=== PATIENT | female | born 1975 | race Caucasian/White ===

== ENCOUNTER → 2017-06-27 | Outpatient (CLI) | payer OTHER ==
[~2017-06-27] MED LIST: ANTIVERT/2525 MG PO; ASPIR-LOW81 MG PO; ASPIRIN ADULT L81 M2 PO; B12,B-12,B 12500 MC1 PO; BACTRIM DS 8001 TA1 PO; CARVEDILOL6.25 MG PO; CELEXA10 MG PO; CLARITIN10 MG PO; COMBIVENT1 ARO IH; COREG3.125 MG PO; COREG6.25 MG PO; FLEXERIL5 MG PO; FLOMAX0.4 MG PO; LISINOPRIL10 M1 PO; LOMOTIL 0.025 M1 TA1 PO; MEDROL DOSEPAK4 MG PO; Motrin,Rufen800 MG PO; NAPROSYN500 MG PO; PERCOCET 325 MG1 TA2 PO; TRAMADOL HCL50 MG PO; TRAMADOL50 MG PO; ULTRAM PO; VICO10300 PO; VICODIN 5/500 505 MG PO; ZITHROMAX Z PA250 MG PO; ZITHROMAX250 MG PO; ZOFRAN ODT4 MG SL; Zofran4 MG PO
[2017-06-27 13:03] LABS: ALBUMIN 3.5 gm/dl (3.1-4.5); BUN 10 mg/dl (7-24); CARBON DIOXIDE 26 mmol/L (21-32); CHLORIDE 104 mmol/L (98-107); CHOLESTEROL 138 mg/dL (<200); EST GLOM FILT AFRICAN AMERICAN > 60 ml/min; GLUCOSE 121 mg/dL (65-99); POTASSIUM 3.7 mmol/L (3.5-5.1); SGOT/AST 5 IU/L (3-35); SGPT/ALT 17 U/L (12-78); SODIUM 138 mmol/L (136-145)
[2017-06-27 13:12] LABS: ALKALINE PHOSPHATASE 63 U/L (45-117); BILIRUBIN, TOTAL 0.4 mg/dl (0.2-1.0); CPK 33 U/L (26-192); HDL CHOLESTEROL 48 mg/dl (40-60); LDL CHOLESTEROL 62 mg/dL (9-159); TOTAL PROTEIN 6.9 gm/dL (6.4-8.2); TRIGLYCERIDES 140 mg/dl (<150); VLDL CHOLESTEROL 28 mg/dL (6-40)
[2017-06-27 13:14] LABS: HEMOGLOBIN A1c 5.9 % (4.8-5.6)
[2017-06-27 13:20] LABS: BASO % 0.8 % (0.0-1.0); EOS # 0.1 10*3/uL (0.0-0.4); EOS % 1.7 % (1.0-4.0); HEMATOCRIT 35.3 % (37.0-47.0); LYMPH # 1.3 10*3/uL (1.3-4.4); LYMPH % 24.9 % (27.0-41.0); MEAN CELL VOLUME 91.2 fl (81.0-99.0); MEAN PLATELET VOLUME 9.6 fl (9.6-12.3); MONO # 0.4 10*3/uL (0.1-1.0); MONO % 7.3 % (3.0-9.0); NEUT # 3.4 10*3/uL (2.3-7.9); NEUT % 65.1 % (47.0-73.0); PLATELET COUNT AUTOMATED 229 10*3/uL (130-400); RED BLOOD COUNT 3.87 10*6/uL (4.10-5.10); RED CELL DISTRI WIDTH 12.5 % (0-14.5); WHITE BLOOD COUNT 5.2 10*3/uL (4.8-10.8)
[2017-06-27 13:22] LABS: IRON 82 ug/dL (50-170); IRON SATURATION 20 %; T3 UPTAKE 27 % (31-39); UIBC 315 ug/dL (110-365)
[2017-06-27 13:23] LABS: IRF 8.6 % (2.4-13.3); RET-He 32.9 pg (32.1-37.9)
[2017-06-27 13:40] LABS: FERRITIN 47.2 ng/mL (10.0-291.0)
[2017-06-27 13:41] LABS: FOLIC ACID 14.84 ng/mL (>5.38)
== END | disposition home or self-care (01) ==
LOC: LAB 12:05
PROVIDERS: Family Medicine
DX: E78.5 Hyperlipidemia, unspecified (principal); R79.89 Other specified abnormal findings of blood chemistry; R53.83 Other fatigue

== ENCOUNTER 2017-08-01 13:29 | Inpatient (IN) | payer OTHER ==
[~2017-08-01] VITALS: Ht 162.5 cm; Wt 100.9 kg
[2017-08-01 13:35] VITALS: BP 148/80
[2017-08-01 14:01] LABS: BASO % 0.5 % (0.0-1.0); EOS # 0.1 10*3/uL (0.0-0.4); EOS % 1.4 % (1.0-4.0); HEMATOCRIT 37.8 % (37.0-47.0); HEMOGLOBIN 12.6 g/dl (12.0-16.0); LYMPH # 1.2 10*3/uL (1.3-4.4); LYMPH % 18.2 % (27.0-41.0); MEAN CELL VOLUME 90.9 fl (81.0-99.0); MEAN CORPUSCULAR HGB 30.3 pg (27.0-31.0); MEAN CORPUSCULAR HGB CONC 33.3 g/dl (33.0-37.0); MEAN PLATELET VOLUME 9.3 fl (9.6-12.3); MONO # 0.6 10*3/uL (0.1-1.0); MONO % 8.5 % (3.0-9.0); NEUT # 4.7 10*3/uL (2.3-7.9); NEUT % 71.1 % (47.0-73.0); PLATELET COUNT AUTOMATED 260 10*3/uL (130-400); RED BLOOD COUNT 4.16 10*6/uL (4.10-5.10); RED CELL DISTRI WIDTH 12.3 % (0-14.5); WHITE BLOOD COUNT 6.6 10*3/uL (4.8-10.8)
[2017-08-01 14:12] LABS: ACT PARTIAL THROMBO TIME 22.6 SECONDS (20.8-31.5)
[2017-08-01 14:17] LABS: ALBUMIN 3.8 gm/dl (3.1-4.5); ALKALINE PHOSPHATASE 82 U/L (45-117); BUN 15 mg/dl (7-24); CHLORIDE 105 mmol/L (98-107); CREATININE 0.87 mg/dL (0.55-1.02); MAGNESIUM 2.1 mg/dL (1.5-2.1); POTASSIUM 3.9 mmol/L (3.5-5.1); SGOT/AST 10 IU/L (3-35); SGPT/ALT 17 U/L (12-78); SODIUM 138 mmol/L (136-145); TOTAL PROTEIN 7.7 gm/dL (6.4-8.2)
[2017-08-01 14:18] LABS: LIPASE 674 U/L (73-393)
[2017-08-01 14:19] LABS: BETA-HCG, QUANT < 1.0 mIU/mL (1-3); TROPONIN I < 0.015 ng/ml (<0.045)
[2017-08-01 14:59] VITALS: BP 128/73
--- NOTE | 2017-08-01 15:18 | NUR ---
PATIENT IN ROOM AT THIS TIME IN NO DISTRESS.
[2017-08-01 16:42] VITALS: BP 113/68
[2017-08-01 17:00] VITALS: BP 134/74
--- NOTE | 2017-08-01 17:00 | NUR ---
A 41, admitted to , under the services of KERVIN Camp DO with a diagnosis of CHEST PAIN R/O MA. Chief complaint is CHEST PAIN. Patient arrived via bed from ER. Monitor applied. Initial assessment completed. Vital signs taken and recorded. KERVIN CAMP DO notified of admission to the unit. Orders received. See assessment for past medical history, medications and allergies. Patient and/or family oriented to unit. [facility] visitation policy reviewed. Clothing/patient valuable form completed. AMAYA PATE
--- NOTE | 2017-08-01 17:14 | NUR ---
PATIENT CONSULT CALLED TO DR. PENNY. THE WAS UPDATED ON THE PATIENTS CONDITION, TOLD ABOUT CARE SO FAR FROM [facility]. THE WAS ALSO UPDATED ON LABS FROM THE PATIENT. DR. PENNY REQUESTED THE REPORT FROM THE HOSPITAL THE PATIENT WAS AT IN FEBRUARY FOR CARDIAC STENT PLACEMENT, NO OTHER CONCERNS FROM THE
[2017-08-01 17:20] VITALS: BP 134/74
[2017-08-01] MEDS ORDERED: LASIX40 MG PO (17:23)
[2017-08-01] MEDS ORDERED: PLAVIX75 M1 PO (17:23)
[2017-08-01] MEDS ORDERED: IMDUR SA30 MG (17:24)
[2017-08-01] MEDS ORDERED: APRESOLINE10 MG PO (17:25)
[2017-08-01] MEDS ORDERED: TRAMADOL HCL50 MG PO (17:26)
[2017-08-01] MEDS ORDERED: LIPITOR10 MG PO (17:26)
[2017-08-01] MEDS ORDERED: VENTOLIN 02.5 MG/3 M INH (17:28)
[2017-08-01 20:00] VITALS: BP 118/60
[2017-08-02] VITALS: BP 145/79
--- NOTE | 2017-08-02 00:51 | NUR ---
24 HR chart check completed.
[2017-08-02 06:56] LABS: BASO % 0.5 % (0.0-1.0); EOS # 0.1 10*3/uL (0.0-0.4); EOS % 2.1 % (1.0-4.0); HEMATOCRIT 35.8 % (37.0-47.0); HEMOGLOBIN 11.8 g/dl (12.0-16.0); LYMPH # 1.4 10*3/uL (1.3-4.4); LYMPH % 23.8 % (27.0-41.0); MEAN CELL VOLUME 91.3 fl (81.0-99.0); MEAN CORPUSCULAR HGB 30.1 pg (27.0-31.0); MEAN PLATELET VOLUME 9.3 fl (9.6-12.3); MONO # 0.4 10*3/uL (0.1-1.0); MONO % 6.8 % (3.0-9.0); NEUT % 66.5 % (47.0-73.0); PLATELET COUNT AUTOMATED 224 10*3/uL (130-400); RED BLOOD COUNT 3.92 10*6/uL (4.10-5.10); RED CELL DISTRI WIDTH 12.2 % (0-14.5); WHITE BLOOD COUNT 6.1 10*3/uL (4.8-10.8)
[2017-08-02 07:15] LABS: BUN 14 mg/dl (7-24); CHLORIDE 106 mmol/L (98-107); CHOLESTEROL 138 mg/dL (<200); HDL CHOLESTEROL 43 mg/dl (40-60); LDL CHOLESTEROL 55 mg/dL (9-159); MAGNESIUM 2.2 mg/dL (1.5-2.1); PHOSPHOROUS 2.9 mg/dL (2.5-4.9); POTASSIUM 3.8 mmol/L (3.5-5.1); SODIUM 138 mmol/L (136-145); TRIGLYCERIDES 201 mg/dl (<150); VLDL CHOLESTEROL 40 mg/dL (6-40)
[2017-08-02 08:00] VITALS: BP 101/51
[2017-08-02 08:06] LABS: VITAMIN D, 25-HYDROXY 24.6 ng/mL (30-100)
--- NOTE | 2017-08-02 09:00 | NUR ---
Manager [employer] in to talk to patient. Patient states lives at home with family. There are few steps in the home. Physician: amarjit lilly [facility]acy: [facility] Home health services: none Patient's level of ADLs: INDEPENDENT Patient has working utilities: all working DME: none Follow-up physician's appointment after d/c: will be made by hospitalist nurse director upon discharge Does patient want to access PORTAL?: no Discharge plan discussed with patient, patient lives at home with family, is independent in adls and ambulation, works drives, denies any home needs. VISH CALLES
--- NOTE | 2017-08-02 09:44 | NUR ---
PATIENT RESTING WITH NO DISTRESS.
[2017-08-02 10:11] VITALS: BP 144/72
[2017-08-02 12:00] VITALS: BP 114/91
[2017-08-02] MEDS ORDERED: VITAMIN D31000 UNI1 PO (14:33)
[2017-08-02] MEDS ORDERED: VITAMIN B121000 MC1 PO (14:34)
--- NOTE | 2017-08-02 15:00 | NUR ---
SPOKE WITH DR. PENNY AND NOTIFIED HIM OF LABS. HE SAID PATIENT COULD FOLLOW UP WITH HIM AN OUTPATIENT AND HAVE STRESS TEST AN OUTPATIENT. DR. KAHN NOTIFIED.
[2017-08-02 16:00] VITALS: BP 114/68
--- NOTE | 2017-08-02 17:14 | NUR ---
HEP LOCK REMOVED FOR DISCHARGE. Discharge instructions reviewed with patient/family. Patient receptive and verbalizes understanding. Follow-up care arranged. Written instructions given to patient/family. SAL SINGLETARY
== END 2017-08-02 17:14 | disposition home or self-care (01) | DRG 313 ==
LOC: ED 13:29 → EDHOLD 14:32 → 5E 14:32
PROVIDERS: Emergency Medicine; Internal Medicine; ADMIT Internal Medicine
DX: R07.89 Other chest pain (principal); I25.2 Old myocardial infarction; I11.0 Hypertensive heart disease with heart failure; E87.2 Acidosis; I50.9 Heart failure, unspecified; I25.10 Atherosclerotic heart disease of native coronary artery without angina pectoris; D72.810 Lymphocytopenia; E78.00 Pure hypercholesterolemia, unspecified; J45.909 Unspecified asthma, uncomplicated; R73.9 Hyperglycemia, unspecified; D64.9 Anemia, unspecified; E53.8 Deficiency of other specified B group vitamins; E83.41 Hypermagnesemia; E78.5 Hyperlipidemia, unspecified; Z98.61 Coronary angioplasty status; Z88.0 Allergy status to penicillin; Z88.8 Allergy status to other drugs, medicaments and biological substances; Z79.899 Other long term (current) drug therapy; Z79.82 Long term (current) use of aspirin; Z98.51 Tubal ligation status; Z82.49 Family history of ischemic heart disease and other diseases of the circulatory system; Z83.3 Family history of diabetes mellitus; Z80.1 Family history of malignant neoplasm of trachea, bronchus and lung; Z84.89 Family history of other specified conditions

== ENCOUNTER → 2017-08-29 | Outpatient (CLI) | payer OTHER ==
[~2017-08-29] MED LIST changes: +APRESOLINE10 MG PO; +IMDUR SA30 MG; +LASIX40 MG PO; +LIPITOR10 MG PO; +PLAVIX75 M1 PO; +VENTOLIN 02.5 MG/3 M INH; +VITAMIN B121000 MC1 PO; +VITAMIN D31000 UNI1 PO
--- NOTE | ~2017-08-29 | ST ---
[place], [place] EXERCISE STRESS TEST REPORT NAME: MARY ARTHUR UNIT #: [id number] ROOM: DOCTOR: JARED PENNY MD BIRTHDATE: [birth year] DOS: 08/29/2017 CARDIOLITE STRESS TEST The patient walked on the Gustavo protocol about 5 minutes. Heart rate is 150, 85% of predicted heart rate. Baseline cardiogram. Sinus rhythm with exercise. No new EKG changes. No chest discomfort. Blood pressure and heart rate response was normal. FINAL IMPRESSION: No EKG changes with exercise. No chest pain with exercise. No dysrhythmia with exercise. Blood pressure and heart rate response was normal. Nuclear images will be reported separately. JARED PENNY MD CM:STRESS:EXERCISE STRESS TEST REPORT [id number] JARED PENNY MD
--- NOTE | 2017-08-29 08:00 | NUR ---
INFORMED CONSENT SIGNED FOR CARDIOLYTE STRESS TEST WITH DR. PENNY. RESTING EKG NSR, HR 70, BP 124/90. COMPLETED 5:05 OF A TWO MINUTE WARREN PROTOCOL STRESS TEST COMPLETING 1:05 STAGE III, 3.4MPH/14% GRADE. TEST TERMINATED D/T FATIGUE. PEAK HEART RATE OF 152 ACHIEVED WHICH IS 86% PREDICTED MAXIMUM AND A PEAK BP 190/80. PVC'S NOTED IN RECOVERY AND NON DIAGNOSTIC ST CHANGES. PT C/O SOB. HAS A FAIR EXERCISE TOLERANCE. LAST RECOVERY HR 80, BP 160/82. WAITING NUCLEAR SCANNING IN STABLE CONDITION.
== END | disposition home or self-care (01) ==
LOC: CARD 02:23
DX: I25.9 Chronic ischemic heart disease, unspecified (principal)

== ENCOUNTER 2018-03-07 12:34 | Emergency (ER) | payer OTHER ==
[~2018-03-07] VITALS: Ht 162.5 cm; Wt 103.0 kg
[2018-03-07 12:36] VITALS: BP 114/72
[2018-03-07] MEDS ORDERED: PROVENTIL HFA6.7 GM INH (12:44)
[2018-03-07] MEDS ORDERED: ATORVASTATIN CA10 M1 PO (12:44)
[2018-03-07] MEDS ORDERED: CARVEDILOL25 MG PO (12:44)
[2018-03-07] MEDS ORDERED: CLOPIDOGREL75 MG PO (12:44)
[2018-03-07] MEDS ORDERED: FUROSEMIDE40 MG PO (12:45)
[2018-03-07] MEDS ORDERED: BENZONATATE200 MG PO (12:45)
[2018-03-07 13:00] LABS: BASO # 0.1 10*3/uL (0.0-0.1); BASO % 0.8 % (0.0-1.0); EOS # 0.1 10*3/uL (0.0-0.4); EOS % 1.4 % (1.0-4.0); HEMATOCRIT 37.8 % (37.0-47.0); HEMOGLOBIN 12.9 g/dl (12.0-16.0); LYMPH # 1.1 10*3/uL (1.3-4.4); LYMPH % 15.8 % (27.0-41.0); MEAN CELL VOLUME 90.2 fl (81.0-99.0); MEAN CORPUSCULAR HGB 30.8 pg (27.0-31.0); MEAN CORPUSCULAR HGB CONC 34.1 g/dl (33.0-37.0); MEAN PLATELET VOLUME 9.2 fl (9.6-12.3); MONO # 0.4 10*3/uL (0.1-1.0); MONO % 5.8 % (3.0-9.0); NEUT # 5.5 10*3/uL (2.3-7.9); NEUT % 75.8 % (47.0-73.0); PLATELET COUNT AUTOMATED 285 10*3/uL (130-400); RED BLOOD COUNT 4.19 10*6/uL (4.10-5.10); RED CELL DISTRI WIDTH 12.8 % (0-14.5); WHITE BLOOD COUNT 7.2 10*3/uL (4.8-10.8)
[2018-03-07 13:09] LABS: ACT PARTIAL THROMBO TIME 19.9 SECONDS (20.8-31.5)
[2018-03-07 13:15] LABS: ALBUMIN 3.8 gm/dl (3.1-4.5); ALKALINE PHOSPHATASE 71 U/L (45-117); BUN 13 mg/dl (7-24); CHLORIDE 107 mmol/L (98-107); CREATININE 1.03 mg/dL (0.55-1.02); POTASSIUM 3.5 mmol/L (3.5-5.1); SGOT/AST 13 IU/L (3-35); SGPT/ALT 24 U/L (12-78); SODIUM 142 mmol/L (136-145); TOTAL PROTEIN 7.5 gm/dL (6.4-8.2)
== END 2018-03-07 14:30 | disposition home or self-care (01) ==
LOC: ED 12:34
PROVIDERS: Emergency Medicine
DX: J45.901 Unspecified asthma with (acute) exacerbation (principal); I25.10 Atherosclerotic heart disease of native coronary artery without angina pectoris; I11.0 Hypertensive heart disease with heart failure; I50.9 Heart failure, unspecified; E78.00 Pure hypercholesterolemia, unspecified; Z95.5 Presence of coronary angioplasty implant and graft; Z98.51 Tubal ligation status; Z79.899 Other long term (current) drug therapy; Z88.0 Allergy status to penicillin; Z79.82 Long term (current) use of aspirin

== ENCOUNTER → 2018-03-30 | Outpatient (CLI) | payer OTHER ==
[~2018-03-30] MED LIST changes: +ATORVASTATIN CA10 M1 PO; +BENZONATATE200 MG PO; +CARVEDILOL25 MG PO; +CLOPIDOGREL75 MG PO; +FUROSEMIDE40 MG PO; +PROVENTIL HFA6.7 GM INH
== END | disposition home or self-care (01) ==
LOC: US 14:00
DX: I70.203 Unspecified atherosclerosis of native arteries of extremities, bilateral legs (principal); I10 Essential (primary) hypertension

== ENCOUNTER 2018-05-19 23:17 | Emergency (ER) | payer OTHER ==
[~2018-05-19] VITALS: Ht 162.5 cm; Wt 106.6 kg
[2018-05-19 23:44] VITALS: BP 162/92
[2018-05-19 23:49] LABS: BASO # 0.1 10*3/uL (0.0-0.1); BASO % 0.7 % (0.0-1.0); EOS # 0.1 10*3/uL (0.0-0.4); EOS % 0.7 % (1.0-4.0); HEMATOCRIT 44.5 % (37.0-47.0); HEMOGLOBIN 14.8 g/dl (12.0-16.0); LYMPH # 1.9 10*3/uL (1.3-4.4); LYMPH % 18.3 % (27.0-41.0); MEAN CELL VOLUME 93.3 fl (81.0-99.0); MEAN CORPUSCULAR HGB CONC 33.3 g/dl (33.0-37.0); MEAN PLATELET VOLUME 9.4 fl (9.6-12.3); MONO # 0.6 10*3/uL (0.1-1.0); MONO % 5.6 % (3.0-9.0); NEUT # 7.9 10*3/uL (2.3-7.9); NEUT % 74.2 % (47.0-73.0); PLATELET COUNT AUTOMATED 269 10*3/uL (130-400); RED BLOOD COUNT 4.77 10*6/uL (4.10-5.10); RED CELL DISTRI WIDTH 12.9 % (0-14.5); WHITE BLOOD COUNT 10.6 10*3/uL (4.8-10.8)
[2018-05-19 23:59] LABS: ACT PARTIAL THROMBO TIME 21.6 SECONDS (20.8-31.5); INTERNATIONAL NORM RATIO 0.9 (2.0-3.5)
[2018-05-20 00:05] LABS: ALBUMIN 3.6 gm/dl (3.1-4.5); ALKALINE PHOSPHATASE 75 U/L (45-117); BUN 18 mg/dl (7-24); CHLORIDE 107 mmol/L (98-107); POTASSIUM 4.2 mmol/L (3.5-5.1); SGOT/AST 12 IU/L (3-35); SGPT/ALT 19 U/L (12-78); SODIUM 140 mmol/L (136-145); TOTAL PROTEIN 7.3 gm/dL (6.4-8.2)
[2018-05-20 00:11] LABS: TROPONIN I 0.196 ng/ml (<0.045)
[2018-06-06] MEDS ORDERED: ZESTRIL5 MG PO (15:35)
[2018-06-06] MEDS ORDERED: ISOSORBIDE30 MG PO (15:35)
[2018-06-06] MEDS ORDERED: APRESOLINE10 MG PO (15:36)
[2018-06-06] MEDS ORDERED: Lopressor25 MG PO (15:36)
[2018-06-06] MEDS ORDERED: ARNUITY ELLIP100 MCG INH (15:37)
[2018-06-08] MEDS ORDERED: IMDUR SA60 M1 PO (10:04)
[2018-06-08] MEDS ORDERED: B12100 MC1 PO (10:04)
== END 2018-05-20 02:52 | disposition short-term general hospital (02) ==
LOC: ED 23:17
PROVIDERS: Student in an Organized Health Care Education/Training Program
DX: I21.4 Non-ST elevation (NSTEMI) myocardial infarction (principal); J45.909 Unspecified asthma, uncomplicated; I25.10 Atherosclerotic heart disease of native coronary artery without angina pectoris; I11.0 Hypertensive heart disease with heart failure; I50.9 Heart failure, unspecified; E78.00 Pure hypercholesterolemia, unspecified; Z88.0 Allergy status to penicillin; Z79.899 Other long term (current) drug therapy

== ENCOUNTER 2020-02-03 10:31 | Observation (INO) | payer OTHER ==
[~2020-02-03] VITALS: Ht 160 cm; Wt 97.6 kg
[2020-02-03] VITALS (8 sets, daily range): BP systolic 154–174; BP diastolic 78–90
[~2020-02-03 10:31] MED LIST changes: +ARNUITY ELLIP100 MCG INH; +B12100 MC1 PO; +COZAAR50 M1 PO; +IMDUR SA60 M1 PO; +ISOSORBIDE30 MG PO; +Lopressor25 MG PO; +NORVASC2.5 MG PO; +PROZAC20 MG PO; +SINGULAIR10 M1 PO; +VERAPAMIL HCL40 MG PO; +VISTARIL25 MG PO; +VITAMIN C500 M8 PO; +VITAMIN E400 UNI3 PO; +ZESTRIL5 MG PO
[2020-02-03 10:56] LABS: BASO % 0.6 % (0.0-1.0); EOS # 0.1 10*3/uL (0.0-0.4); EOS % 1.4 % (1.0-4.0); HEMATOCRIT 39.8 % (37.0-47.0); HEMOGLOBIN 13.1 g/dl (12.0-16.0); LYMPH # 1.3 10*3/uL (1.3-4.4); LYMPH % 24.4 % (27.0-41.0); MEAN CELL VOLUME 93.2 fl (81.0-99.0); MEAN CORPUSCULAR HGB 30.7 pg (27.0-31.0); MEAN CORPUSCULAR HGB CONC 32.9 g/dl (33.0-37.0); MEAN PLATELET VOLUME 8.9 fl (9.6-12.3); MONO # 0.5 10*3/uL (0.1-1.0); MONO % 9.6 % (3.0-9.0); NEUT # 3.3 10*3/uL (2.3-7.9); NEUT % 63.8 % (47.0-73.0); PLATELET COUNT AUTOMATED 223 10*3/uL (130-400); RED BLOOD COUNT 4.27 10*6/uL (4.10-5.10); RED CELL DISTRI WIDTH 12.7 % (0-14.5); WHITE BLOOD COUNT 5.1 10*3/uL (4.8-10.8)
[2020-02-03 11:07] LABS: ACT PARTIAL THROMBO TIME 27.6 SECONDS (20.0-32.1); INTERNATIONAL NORM RATIO 0.9 (2.0-3.5)
[2020-02-03 11:12] LABS: ALBUMIN 3.5 gm/dl (3.1-4.5); ALKALINE PHOSPHATASE 75 U/L (45-117); BUN 13 mg/dl (7-24); CHLORIDE 107 mmol/L (98-107); CREATININE 0.77 mg/dL (0.55-1.02); POTASSIUM 4.2 mmol/L (3.5-5.1); SGOT/AST 13 IU/L (3-35); SGPT/ALT 22 U/L (12-78); SODIUM 139 mmol/L (136-145); TOTAL PROTEIN 7.3 gm/dL (6.4-8.2)
[2020-02-03 11:28] LABS: TROPONIN I < 0.015 ng/ml (<0.045)
[2020-02-03] MEDS ORDERED: ROPINIROLE HY0.25 MG PO (14:26)
[2020-02-03] MEDS ORDERED: IMDUR SA60 M1 PO (14:28)
[2020-02-03] MEDS ORDERED: NITROSTAT0.4 MG SL (14:28)
[2020-02-03] MEDS ORDERED: DIOVAN80 M1 PO (14:29)
[2020-02-04] VITALS: BP 135/68; BP 153/89
[2020-02-04 06:11] LABS: BASO % 0.3 % (0.0-1.0); EOS # 0.1 10*3/uL (0.0-0.4); EOS % 0.7 % (1.0-4.0); HEMOGLOBIN 13.3 g/dl (12.0-16.0); LYMPH # 1.6 10*3/uL (1.3-4.4); LYMPH % 17.8 % (27.0-41.0); MEAN CELL VOLUME 91.3 fl (81.0-99.0); MEAN CORPUSCULAR HGB 30.4 pg (27.0-31.0); MEAN CORPUSCULAR HGB CONC 33.3 g/dl (33.0-37.0); MEAN PLATELET VOLUME 8.8 fl (9.6-12.3); MONO # 0.7 10*3/uL (0.1-1.0); MONO % 8.1 % (3.0-9.0); NEUT # 6.7 10*3/uL (2.3-7.9); NEUT % 72.8 % (47.0-73.0); PLATELET COUNT AUTOMATED 233 10*3/uL (130-400); RED BLOOD COUNT 4.38 10*6/uL (4.10-5.10); RED CELL DISTRI WIDTH 12.4 % (0-14.5); WHITE BLOOD COUNT 9.2 10*3/uL (4.8-10.8)
[2020-02-04 06:24] LABS: ALBUMIN 3.2 gm/dl (3.1-4.5); BUN 10 mg/dl (7-24); CHLORIDE 105 mmol/L (98-107); CHOLESTEROL 162 mg/dL (<200); CREATININE 0.64 mg/dL (0.55-1.02); POTASSIUM 4.3 mmol/L (3.5-5.1); SGOT/AST 6 IU/L (3-35); SGPT/ALT 19 U/L (12-78); SODIUM 136 mmol/L (136-145); TOTAL PROTEIN 7.1 gm/dL (6.4-8.2); TRIGLYCERIDES 181 mg/dl (<150); VLDL CHOLESTEROL 36 mg/dL (6-40)
[2020-02-04 06:31] LABS: ALKALINE PHOSPHATASE 68 U/L (45-117); FREE T4 1.07 ng/dl (0.76-1.46); HDL CHOLESTEROL 41 mg/dl (40-60); LDL CHOLESTEROL 85 mg/dL (9-159)
[2020-02-04 07:37] LABS: VITAMIN D, 25-HYDROXY 28.1 ng/mL (30-100)
[2020-02-04 08:00] VITALS: BP 118/76
[2020-02-04 12:00] VITALS: BP 130/76
== END 2020-02-04 14:30 | disposition home or self-care (01) ==
LOC: ED 10:31 → EDHOLD 12:03 → 4E 12:03
PROVIDERS: Emergency Medicine; Registered Nurse; ADMIT Internal Medicine
DX: R07.89 Other chest pain (principal); I25.10 Atherosclerotic heart disease of native coronary artery without angina pectoris; I10 Essential (primary) hypertension; E78.00 Pure hypercholesterolemia, unspecified; J45.909 Unspecified asthma, uncomplicated; E53.8 Deficiency of other specified B group vitamins; E55.9 Vitamin D deficiency, unspecified; E66.9 Obesity, unspecified; R73.9 Hyperglycemia, unspecified

== ENCOUNTER 2020-02-15 13:45 | Emergency (ER) | payer OTHER ==
[~2020-02-15] VITALS: Ht 162.5 cm; Wt 74.8 kg
[~2020-02-15 13:45] MED LIST changes: +DIOVAN80 M1 PO; +NITROSTAT0.4 MG SL; +ROPINIROLE HY0.25 MG PO
[2020-02-15 14:25] LABS: BASO # 0.1 10*3/uL (0.0-0.1); BASO % 0.8 % (0.0-1.0); EOS # 0.1 10*3/uL (0.0-0.4); EOS % 0.8 % (1.0-4.0); HEMATOCRIT 37.3 % (37.0-47.0); HEMOGLOBIN 12.8 g/dl (12.0-16.0); LYMPH # 1.1 10*3/uL (1.3-4.4); LYMPH % 14.1 % (27.0-41.0); MEAN CELL VOLUME 90.1 fl (81.0-99.0); MEAN CORPUSCULAR HGB 30.9 pg (27.0-31.0); MEAN CORPUSCULAR HGB CONC 34.3 g/dl (33.0-37.0); MEAN PLATELET VOLUME 8.9 fl (9.6-12.3); MONO # 0.5 10*3/uL (0.1-1.0); MONO % 5.9 % (3.0-9.0); NEUT # 6.1 10*3/uL (2.3-7.9); PLATELET COUNT AUTOMATED 295 10*3/uL (130-400); RED BLOOD COUNT 4.14 10*6/uL (4.10-5.10); RED CELL DISTRI WIDTH 12.3 % (0-14.5); WHITE BLOOD COUNT 7.8 10*3/uL (4.8-10.8)
[2020-02-15 14:42] LABS: ALBUMIN 3.4 gm/dl (3.1-4.5); ALKALINE PHOSPHATASE 61 U/L (45-117); BUN 11 mg/dl (7-24); CHLORIDE 106 mmol/L (98-107); CREATININE 0.76 mg/dL (0.55-1.02); POTASSIUM 3.9 mmol/L (3.5-5.1); SGOT/AST 13 IU/L (3-35); SGPT/ALT 27 U/L (12-78); SODIUM 138 mmol/L (136-145); TROPONIN I < 0.015 ng/ml (<0.045)
[2020-02-15 15:24] VITALS: BP 100/51
== END 2020-02-15 15:31 | disposition home or self-care (01) ==
LOC: ED 13:45
PROVIDERS: Emergency Medicine
DX: R55 Syncope and collapse (principal); Z79.82 Long term (current) use of aspirin; Z88.0 Allergy status to penicillin; Z79.899 Other long term (current) drug therapy

== ENCOUNTER 2020-09-14 20:45 | Observation (INO) | payer OTHER ==
[~2020-09-14] VITALS: Ht 162.6 cm; Wt 107.2 kg
[2020-09-14 20:58] VITALS: BP 187/93
[2020-09-14 21:13] LABS: BASO % 0.7 % (0.0-1.0); EOS # 0.1 10*3/uL (0.0-0.4); EOS % 1.8 % (1.0-4.0); HEMATOCRIT 39.6 % (37.0-47.0); LYMPH # 1.5 10*3/uL (1.3-4.4); LYMPH % 27.5 % (27.0-41.0); MEAN CELL VOLUME 92.7 fl (81.0-99.0); MEAN CORPUSCULAR HGB 29.5 pg (27.0-31.0); MEAN CORPUSCULAR HGB CONC 31.8 g/dl (33.0-37.0); MEAN PLATELET VOLUME 9.2 fl (9.6-12.3); MONO # 0.5 10*3/uL (0.1-1.0); MONO % 9.1 % (3.0-9.0); NEUT # 3.3 10*3/uL (2.3-7.9); NEUT % 60.5 % (47.0-73.0); PLATELET COUNT AUTOMATED 252 10*3/uL (130-400); RED BLOOD COUNT 4.27 10*6/uL (4.10-5.10); RED CELL DISTRI WIDTH 12.6 % (0-14.5); WHITE BLOOD COUNT 5.4 10*3/uL (4.8-10.8)
[2020-09-14 21:24] LABS: ACT PARTIAL THROMBO TIME 29.3 SECONDS (20.0-32.1)
[2020-09-14 21:32] LABS: ALBUMIN 3.3 gm/dl (3.1-4.5); ALKALINE PHOSPHATASE 82 U/L (45-117); BUN 15 mg/dl (7-24); CHLORIDE 109 mmol/L (98-107); CREATININE 0.74 mg/dL (0.55-1.02); POTASSIUM 3.9 mmol/L (3.5-5.1); SGOT/AST 12 IU/L (3-35); SGPT/ALT 20 U/L (12-78); SODIUM 139 mmol/L (136-145); TOTAL PROTEIN 6.8 gm/dL (6.4-8.2)
[2020-09-14 21:33] LABS: TROPONIN I < 0.015 ng/ml (<0.045)
[2020-09-14 21:34] VITALS: BP 150/83
[2020-09-14 21:58] VITALS: BP 166/76
[2020-09-14 22:03] VITALS: BP 147/86
[2020-09-14 22:31] VITALS: BP 160/74
[2020-09-14 23:05] VITALS: BP 156/74
[2020-09-15 06:01] LABS: BUN 11 mg/dl (7-24); CHLORIDE 109 mmol/L (98-107); CREATININE 0.55 mg/dL (0.55-1.02); POTASSIUM 3.9 mmol/L (3.5-5.1); SODIUM 139 mmol/L (136-145)
[2020-09-15 06:12] LABS: BASO % 0.7 % (0.0-1.0); EOS # 0.1 10*3/uL (0.0-0.4); HEMATOCRIT 39.5 % (37.0-47.0); LYMPH # 1.2 10*3/uL (1.3-4.4); LYMPH % 28.2 % (27.0-41.0); MEAN CELL VOLUME 92.1 fl (81.0-99.0); MEAN CORPUSCULAR HGB 29.8 pg (27.0-31.0); MEAN CORPUSCULAR HGB CONC 32.4 g/dl (33.0-37.0); MEAN PLATELET VOLUME 9.2 fl (9.6-12.3); MONO # 0.4 10*3/uL (0.1-1.0); MONO % 9.3 % (3.0-9.0); NEUT # 2.6 10*3/uL (2.3-7.9); NEUT % 59.3 % (47.0-73.0); PLATELET COUNT AUTOMATED 237 10*3/uL (130-400); RED BLOOD COUNT 4.29 10*6/uL (4.10-5.10); RED CELL DISTRI WIDTH 12.7 % (0-14.5); WHITE BLOOD COUNT 4.4 10*3/uL (4.8-10.8)
[2020-09-15 08:00] VITALS: BP 154/81
[2020-09-15 12:00] VITALS: BP 143/66
== END 2020-09-15 12:52 | disposition home or self-care (01) ==
LOC: ED 20:45 → EDHOLD 22:11 → 5E 22:11
PROVIDERS: Emergency Medicine; Internal Medicine; ADMIT Internal Medicine; ATTEND Internal Medicine
DX: R07.89 Other chest pain (principal); E87.8 Other disorders of electrolyte and fluid balance, not elsewhere classified; F41.9 Anxiety disorder, unspecified; I10 Essential (primary) hypertension; E66.01 Morbid (severe) obesity due to excess calories; Z95.5 Presence of coronary angioplasty implant and graft; I11.0 Hypertensive heart disease with heart failure; I50.30 Unspecified diastolic (congestive) heart failure; E78.5 Hyperlipidemia, unspecified; E55.9 Vitamin D deficiency, unspecified; I25.10 Atherosclerotic heart disease of native coronary artery without angina pectoris; I25.2 Old myocardial infarction

== ENCOUNTER → 2020-10-09 | Outpatient (CLI) | payer OTHER | END | disposition home or self-care (01) | LOC: COVID19 15:20 | PROVIDERS: ATTEND Internal Medicine | DX: Z20.828 Contact with and (suspected) exposure to other viral communicable diseases (principal) ==

== ENCOUNTER → 2020-10-22 | Outpatient (CLI) | payer OTHER | END | disposition home or self-care (01) | LOC: RAD 13:49 | PROVIDERS: ATTEND Family Medicine | DX: M25.511 Pain in right shoulder (principal); M54.2 Cervicalgia ==

== ENCOUNTER 2021-02-05 07:57 | Emergency (ER) | payer OTHER ==
[~2021-02-05] VITALS: Ht 160 cm; Wt 110.2 kg
[2021-02-05 08:08] VITALS: BP 180/96
[2021-02-05 08:34] LABS: BASO # 0.1 10*3/uL (0.0-0.1); BASO % 0.7 % (0.0-1.0); EOS # 0.1 10*3/uL (0.0-0.4); EOS % 0.8 % (1.0-4.0); HEMATOCRIT 37.4 % (37.0-47.0); LYMPH % 11.4 % (27.0-41.0); MEAN CELL VOLUME 91.9 fl (81.0-99.0); MEAN CORPUSCULAR HGB 30.5 pg (27.0-31.0); MEAN CORPUSCULAR HGB CONC 33.2 g/dl (33.0-37.0); MEAN PLATELET VOLUME 9.2 fl (9.6-12.3); MONO # 0.6 10*3/uL (0.1-1.0); MONO % 6.4 % (3.0-9.0); NEUT # 6.9 10*3/uL (2.3-7.9); NEUT % 80.2 % (47.0-73.0); PLATELET COUNT AUTOMATED 197 10*3/uL (130-400); RED BLOOD COUNT 4.07 10*6/uL (4.10-5.10); RED CELL DISTRI WIDTH 13.1 % (0-14.5); WHITE BLOOD COUNT 8.5 10*3/uL (4.8-10.8)
[2021-02-05 08:48] LABS: ALBUMIN 3.2 gm/dl (3.1-4.5); ALKALINE PHOSPHATASE 72 U/L (45-117); BUN 12 mg/dl (7-24); CHLORIDE 105 mmol/L (98-107); CREATININE 0.63 mg/dL (0.55-1.02); LDH 154 U/L (84-246); POTASSIUM 3.7 mmol/L (3.5-5.1); SGOT/AST 13 IU/L (3-35); SGPT/ALT 22 U/L (12-78); SODIUM 138 mmol/L (136-145); TOTAL PROTEIN 6.7 gm/dL (6.4-8.2)
== END 2021-02-05 09:16 | disposition home or self-care (01) ==
LOC: ED 07:57
PROVIDERS: Student in an Organized Health Care Education/Training Program
DX: J45.909 Unspecified asthma, uncomplicated (principal); R06.00 Dyspnea, unspecified; I10 Essential (primary) hypertension; Z20.822 Contact with and (suspected) exposure to COVID-19; Z88.0 Allergy status to penicillin; Z79.899 Other long term (current) drug therapy; Z95.818 Presence of other cardiac implants and grafts; Z98.51 Tubal ligation status

== ENCOUNTER 2021-04-19 23:12 | Emergency (ER) | payer OTHER ==
[~2021-04-19] VITALS: Ht 165.1 cm; Wt 99.8 kg
[2021-04-19 23:22] VITALS: BP 200/100
[2021-04-20] MEDS ORDERED: PREDNISONE20 M1 PO (00:31)
== END 2021-04-20 00:33 | disposition home or self-care (01) ==
LOC: ED 23:12
DX: J45.901 Unspecified asthma with (acute) exacerbation (principal); Z88.0 Allergy status to penicillin; Z79.82 Long term (current) use of aspirin; Z79.899 Other long term (current) drug therapy; Z98.51 Tubal ligation status; Z98.890 Other specified postprocedural states; Z95.818 Presence of other cardiac implants and grafts

== ENCOUNTER → 2021-06-16 | Outpatient (CLI) | payer OTHER ==
[~2021-06-16] MED LIST changes: +PREDNISONE20 M1 PO
[2021-06-16 12:26] LABS: BASO # 0.1 10*3/uL (0.0-0.1); EOS # 0.1 10*3/uL (0.0-0.4); EOS % 1.1 % (1.0-4.0); HEMATOCRIT 40.1 % (37.0-47.0); LYMPH % 19.9 % (27.0-41.0); MEAN CELL VOLUME 92.2 fl (81.0-99.0); MEAN CORPUSCULAR HGB 30.8 pg (27.0-31.0); MEAN CORPUSCULAR HGB CONC 33.4 g/dl (33.0-37.0); MONO # 0.4 10*3/uL (0.1-1.0); MONO % 7.3 % (3.0-9.0); NEUT # 3.7 10*3/uL (2.3-7.9); NEUT % 70.1 % (47.0-73.0); PLATELET COUNT AUTOMATED 299 10*3/uL (130-400); RED BLOOD COUNT 4.35 10*6/uL (4.10-5.10); RED CELL DISTRI WIDTH 12.5 % (0-14.5); WHITE BLOOD COUNT 5.2 10*3/uL (4.8-10.8)
[2021-06-16 12:31] LABS: BILIRUBIN Negative (Negative); BLOOD 1+ (Negative); CLARITY Cloudy (Clear); COLOR Yellow (Yellow); GLUCOSE Negative (Negative); KETONE Trace (Negative); LEUKO ESTERASE 3+ (Negative); NITRITE Negative (Negative); SPECIFIC GRAVITY >= 1.030 (1.001-1.030)
[2021-06-16 12:44] LABS: ALBUMIN 3.9 gm/dl (3.1-4.5); ALKALINE PHOSPHATASE 87 U/L (45-117); BUN 12 mg/dl (7-24); CHLORIDE 105 mmol/L (98-107); CHOLESTEROL 216 mg/dL (<200); CPK 34 U/L (26-192); CREATININE 0.68 mg/dL (0.55-1.02); GAMMA GLUTAMYL TRANSPEPTIDASE 39 U/L (5-55); IRON 99 ug/dL (50-170); POTASSIUM 4.2 mmol/L (3.5-5.1); SGOT/AST 19 IU/L (3-35); SGPT/ALT 36 U/L (12-78); SODIUM 136 mmol/L (136-145); T3 UPTAKE 31 % (31-39); THYROXINE (T4) TOTAL 12.1 ug/dl (4.8-13.9); TOTAL IRON BINDING CAPACITY 400 ug/dl (250-450); TOTAL PROTEIN 7.6 gm/dL (6.4-8.2); TRIGLYCERIDES 295 mg/dl (<150)
[2021-06-16 12:51] LABS: LDL CHOLESTEROL 118 mg/dL (9-159)
[2021-06-16 13:16] LABS: FERRITIN 101.8 ng/mL (10.0-291.0); VITAMIN D, 25-HYDROXY 29.3 ng/mL (30-100)
[2021-06-16 14:00] LABS: BACTERIA 3+; CALCIUM OXALATE CRYSTALS 2+; EPITHELIAL CELLS 31-40; MUCOUS 2+; WBC TNTC wbc/hpf (0-5)
== END | disposition home or self-care (01) ==
LOC: LAB 12:02
PROVIDERS: ATTEND Family Medicine
DX: R79.89 Other specified abnormal findings of blood chemistry (principal); R53.83 Other fatigue; R74.8 Abnormal levels of other serum enzymes; E55.9 Vitamin D deficiency, unspecified

== ENCOUNTER 2021-08-25 16:51 | Emergency (ER) | payer OTHER ==
[~2021-08-25] VITALS: Ht 162.5 cm; Wt 109.3 kg
[2021-08-25 16:59] VITALS: BP 165/70
== END 2021-08-25 18:47 | disposition left against medical advice (07) ==
LOC: ED 16:51
DX: R07.9 Chest pain, unspecified (principal); Z53.21 Procedure and treatment not carried out due to patient leaving prior to being seen by health care provider

== ENCOUNTER → 2021-08-27 | Outpatient (CLI) | payer OTHER | END | disposition home or self-care (01) | LOC: RAD 16:33 | PROVIDERS: ATTEND Family Medicine | DX: R06.02 Shortness of breath (principal) ==

== ENCOUNTER 2021-10-10 15:20 | Emergency (ER) | payer OTHER ==
[~2021-10-10] VITALS: Ht 162.5 cm; Wt 108.9 kg
[2021-10-10 17:07] LABS: BASO % 0.4 % (0.0-1.0); EOS # 0.1 10*3/uL (0.0-0.4); EOS % 1.2 % (1.0-4.0); HEMATOCRIT 37.6 % (37.0-47.0); LYMPH # 1.1 10*3/uL (1.3-4.4); LYMPH % 14.5 % (27.0-41.0); MEAN CELL VOLUME 92.8 fl (81.0-99.0); MEAN CORPUSCULAR HGB 31.1 pg (27.0-31.0); MEAN CORPUSCULAR HGB CONC 33.5 g/dl (33.0-37.0); MEAN PLATELET VOLUME 9.1 fl (9.6-12.3); MONO # 0.7 10*3/uL (0.1-1.0); MONO % 8.6 % (3.0-9.0); NEUT # 5.8 10*3/uL (2.3-7.9); NEUT % 74.9 % (47.0-73.0); PLATELET COUNT AUTOMATED 244 10*3/uL (130-400); RED BLOOD COUNT 4.05 10*6/uL (4.10-5.10); RED CELL DISTRI WIDTH 12.9 % (0-14.5); WHITE BLOOD COUNT 7.8 10*3/uL (4.8-10.8)
[2021-10-10 17:23] LABS: ALBUMIN 3.3 gm/dl (3.1-4.5); ALKALINE PHOSPHATASE 87 U/L (45-117); BUN 14 mg/dl (7-24); CHLORIDE 108 mmol/L (98-107); POTASSIUM 3.7 mmol/L (3.5-5.1); SGOT/AST 9 IU/L (3-35); SGPT/ALT 29 U/L (12-78); SODIUM 139 mmol/L (136-145); TOTAL PROTEIN 6.8 gm/dL (6.4-8.2)
[2021-10-10 18:43] VITALS: BP 160/90
== END 2021-10-10 18:44 | disposition home or self-care (01) ==
LOC: ED 15:20
PROVIDERS: Emergency Medicine
DX: I10 Essential (primary) hypertension (principal); R51.9 Headache, unspecified; I25.10 Atherosclerotic heart disease of native coronary artery without angina pectoris; E66.01 Morbid (severe) obesity due to excess calories; E78.5 Hyperlipidemia, unspecified; Z88.0 Allergy status to penicillin; Z79.899 Other long term (current) drug therapy

== ENCOUNTER → 2021-11-26 | Outpatient (CLI) | payer OTHER | END | disposition home or self-care (01) | LOC: COVID19 16:03 | PROVIDERS: ATTEND Family Medicine | DX: Z11.52 Encounter for screening for COVID-19 (principal) ==

== ENCOUNTER 2022-05-16 09:06 | Emergency (ER) | payer OTHER ==
[~2022-05-16] VITALS: Ht 162.5 cm; Wt 106.6 kg
[2022-05-16 09:14] VITALS: BP 175/97
[2022-05-16] MEDS ORDERED: AVPAK AZITHROM250 MG PO (10:31)
[2022-05-16] MEDS ORDERED: PREDNISONE20 M1 PO (10:31)
== END 2022-05-16 10:35 | disposition home or self-care (01) ==
LOC: ED 09:06
DX: J45.901 Unspecified asthma with (acute) exacerbation (principal); Z20.822 Contact with and (suspected) exposure to COVID-19; I25.10 Atherosclerotic heart disease of native coronary artery without angina pectoris; I10 Essential (primary) hypertension; E78.5 Hyperlipidemia, unspecified; E66.01 Morbid (severe) obesity due to excess calories; Z88.0 Allergy status to penicillin; Z79.899 Other long term (current) drug therapy; Z98.51 Tubal ligation status

== ENCOUNTER 2022-06-27 23:50 | Observation (INO) | payer OTHER ==
[~2022-06-27] VITALS: Ht 162.6 cm; Wt 107.6 kg
[~2022-06-27 23:50] MED LIST changes: +AVPAK AZITHROM250 MG PO
[2022-06-28 00:27] VITALS: BP 165/69
[2022-06-28 00:47] LABS: BASO % 0.7 % (0.0-1.0); EOS # 0.1 10*3/uL (0.0-0.4); EOS % 1.2 % (1.0-4.0); HEMATOCRIT 35.3 % (37.0-47.0); LYMPH # 1.3 10*3/uL (1.3-4.4); MEAN CELL VOLUME 92.4 fl (81.0-99.0); MEAN CORPUSCULAR HGB 31.7 pg (27.0-31.0); MEAN CORPUSCULAR HGB CONC 34.3 g/dl (33.0-37.0); MEAN PLATELET VOLUME 8.9 fl (9.6-12.3); MONO # 0.4 10*3/uL (0.1-1.0); NEUT # 3.9 10*3/uL (2.3-7.9); NEUT % 67.6 % (47.0-73.0); PLATELET COUNT AUTOMATED 191 10*3/uL (130-400); RED BLOOD COUNT 3.82 10*6/uL (4.10-5.10); RED CELL DISTRI WIDTH 13.1 % (0-14.5); WHITE BLOOD COUNT 5.8 10*3/uL (4.8-10.8)
[2022-06-28 00:57] LABS: ACT PARTIAL THROMBO TIME 27.5 SECONDS (20.0-32.1)
[2022-06-28 01:21] LABS: ALKALINE PHOSPHATASE 74 U/L (45-117); BUN 15 mg/dl (7-24); CHLORIDE 106 mmol/L (98-107); CREATININE 0.73 mg/dL (0.55-1.02); POTASSIUM 3.6 mmol/L (3.5-5.1); SGOT/AST 28 IU/L (3-35); SGPT/ALT 34 U/L (12-78); SODIUM 139 mmol/L (136-145); TOTAL PROTEIN 6.4 gm/dL (6.4-8.2)
[2022-06-28 04:23] VITALS: BP 144/74
[2022-06-28 06:16] LABS: BASO % 0.7 % (0.0-1.0); EOS % 0.5 % (1.0-4.0); HEMATOCRIT 35.1 % (37.0-47.0); LYMPH # 1.1 10*3/uL (1.3-4.4); LYMPH % 18.5 % (27.0-41.0); MEAN CELL VOLUME 94.4 fl (81.0-99.0); MEAN CORPUSCULAR HGB 32.3 pg (27.0-31.0); MEAN CORPUSCULAR HGB CONC 34.2 g/dl (33.0-37.0); MEAN PLATELET VOLUME 9.3 fl (9.6-12.3); MONO # 0.3 10*3/uL (0.1-1.0); NEUT # 4.3 10*3/uL (2.3-7.9); NEUT % 74.8 % (47.0-73.0); PLATELET COUNT AUTOMATED 200 10*3/uL (130-400); RED BLOOD COUNT 3.72 10*6/uL (4.10-5.10); RED CELL DISTRI WIDTH 13.1 % (0-14.5); WHITE BLOOD COUNT 5.8 10*3/uL (4.8-10.8)
[2022-06-28 06:37] LABS: BUN 13 mg/dl (7-24); CHLORIDE 104 mmol/L (98-107); POTASSIUM 4.1 mmol/L (3.5-5.1); SODIUM 137 mmol/L (136-145)
[2022-06-28 06:45] LABS: ALKALINE PHOSPHATASE 70 U/L (45-117); CHOLESTEROL 142 mg/dL (<200); CREATININE 0.68 mg/dL (0.55-1.02); FREE T4 1.14 ng/dl (0.76-1.46); LDL CHOLESTEROL 67 mg/dL (9-159); SGOT/AST 28 IU/L (3-35); SGPT/ALT 34 U/L (12-78); TOTAL PROTEIN 6.5 gm/dL (6.4-8.2); TRIGLYCERIDES 211 mg/dl (<150)
[2022-06-28 07:35] VITALS: BP 172/71
[2022-06-28 08:45] VITALS: BP 153/76
[2022-06-28] MEDS ORDERED: GLUCOPHAGE500 MG PO (14:31)
[2022-06-28 15:00] VITALS: BP 157/81
== END 2022-06-28 15:44 | disposition home or self-care (01) ==
LOC: ED 23:50 → 4E 06-28 03:43 → EDHOLD 06-28 03:43 → 4E 06-28 05:44
PROVIDERS: Emergency Medicine; Internal Medicine; ADMIT Emergency Medicine; ATTEND Emergency Medicine
DX: J45.901 Unspecified asthma with (acute) exacerbation (principal); I25.10 Atherosclerotic heart disease of native coronary artery without angina pectoris; I11.0 Hypertensive heart disease with heart failure; I50.33 Acute on chronic diastolic (congestive) heart failure; E78.5 Hyperlipidemia, unspecified; F41.9 Anxiety disorder, unspecified; E78.1 Pure hyperglyceridemia; I16.0 Hypertensive urgency; E11.65 Type 2 diabetes mellitus with hyperglycemia; Z95.5 Presence of coronary angioplasty implant and graft; Z79.899 Other long term (current) drug therapy

== ENCOUNTER → 2022-10-26 | Outpatient (CLI) | payer OTHER ==
[~2022-10-26] MED LIST changes: +GLUCOPHAGE500 MG PO
[2022-10-26 16:35] LABS: BASO # 0.1 10*3/uL (0.0-0.1); BILIRUBIN Negative (Negative); BLOOD Negative (Negative); CLARITY Clear (Clear); COLOR Yellow (Yellow); EOS # 0.1 10*3/uL (0.0-0.4); EOS % 1.6 % (1.0-4.0); GLUCOSE Negative (Negative); KETONE Negative (Negative); LEUKO ESTERASE Trace (Negative); LYMPH # 1.3 10*3/uL (1.3-4.4); LYMPH % 26.6 % (27.0-41.0); MEAN CELL VOLUME 88.2 fl (81.0-99.0); MEAN CORPUSCULAR HGB 31.2 pg (27.0-31.0); MEAN CORPUSCULAR HGB CONC 35.4 g/dl (33.0-37.0); MEAN PLATELET VOLUME 9.3 fl (9.6-12.3); MONO # 0.4 10*3/uL (0.1-1.0); NITRITE Negative (Negative); PLATELET COUNT AUTOMATED 248 10*3/uL (130-400); RED BLOOD COUNT 4.42 10*6/uL (4.10-5.10); RED CELL DISTRI WIDTH 11.9 % (0-14.5); RETICULOCYTE % 2.88 % (0.50-2.50); SPECIFIC GRAVITY 1.015 (1.001-1.030); UROBILINOGEN 0.2 E.U./dl (0.0-1.0); WHITE BLOOD COUNT 4.9 10*3/uL (4.8-10.8)
[2022-10-26 16:52] LABS: ALKALINE PHOSPHATASE 88 U/L (46-116); BUN 8 mg/dl (9-23); CHLORIDE 98 mmol/L (98-107); CHOLESTEROL 213 mg/dL (<200); GAMMA GLUTAMYL TRANSPEPTIDASE 153 U/L (0-73); LDL CHOLESTEROL 115 mg/dL (9-159); POTASSIUM 3.8 mmol/L (3.4-5.1); SGPT/ALT 46 U/L (10-49); SODIUM 134 mmol/L (136-145); T3 UPTAKE 27.6 % (22.4-36.7); THYROID STIM HORMONE (HS) 1.354 uIU/ml (0.550-4.780); THYROXINE (T4) TOTAL 10.5 ug/dl (4.5-10.9); TOTAL PROTEIN 7.2 gm/dL (6.0-8.0); TRIGLYCERIDES 310 mg/dl (<150)
[2022-10-26 16:53] LABS: VITAMIN D, 25-HYDROXY 25.6 ng/mL (30-100)
[2022-10-26 17:46] LABS: BACTERIA 1+; EPITHELIAL CELLS 16-20
== END | disposition home or self-care (01) ==
LOC: LAB 16:06
PROVIDERS: ATTEND Family Medicine
DX: E78.5 Hyperlipidemia, unspecified (principal); E55.9 Vitamin D deficiency, unspecified; R53.83 Other fatigue; R79.89 Other specified abnormal findings of blood chemistry; R74.8 Abnormal levels of other serum enzymes

== ENCOUNTER → 2023-02-28 | Outpatient (CLI) | payer OTHER | END | disposition home or self-care (01) | LOC: MAMMO 00:58 | PROVIDERS: ATTEND Internal Medicine | DX: Z12.31 Encounter for screening mammogram for malignant neoplasm of breast (principal) ==

== ENCOUNTER 2023-04-17 09:53 | Emergency (ER) | payer OTHER ==
[~2023-04-17] VITALS: Ht 162.5 cm; Wt 106.6 kg
[2023-04-17 10:03] VITALS: BP 187/74
[2023-04-17] MEDS ORDERED: ATORVASTATIN CA40 M1 PO (10:05)
[2023-04-17] MEDS ORDERED: ACETAMINOPHEN325 M2 PO (10:06)
[2023-04-17] MEDS ORDERED: NOVOLOG MI100 UNIT/1 SQ (10:10)
[2023-04-17 10:59] LABS: BASO # 0.1 10*3/uL (0.0-0.1); BASO % 0.8 % (0.0-1.0); EOS # 0.1 10*3/uL (0.0-0.4); HEMATOCRIT 36.7 % (37.0-47.0); LYMPH # 1.3 10*3/uL (1.3-4.4); LYMPH % 21.1 % (27.0-41.0); MEAN CELL VOLUME 90.2 fl (81.0-99.0); MEAN CORPUSCULAR HGB 31.2 pg (27.0-31.0); MEAN CORPUSCULAR HGB CONC 34.6 g/dl (33.0-37.0); MEAN PLATELET VOLUME 8.8 fl (9.6-12.3); MONO # 0.4 10*3/uL (0.1-1.0); MONO % 6.5 % (3.0-9.0); NEUT # 4.2 10*3/uL (2.3-7.9); NEUT % 70.1 % (47.0-73.0); PLATELET COUNT AUTOMATED 178 10*3/uL (130-400); RED BLOOD COUNT 4.07 10*6/uL (4.10-5.10); RED CELL DISTRI WIDTH 12.8 % (0-14.5)
[2023-04-17 11:28] LABS: ALKALINE PHOSPHATASE 73 U/L (46-116); BUN 9 mg/dl (9-23); CHLORIDE 105 mmol/L (98-107); POTASSIUM 3.7 mmol/L (3.4-5.1); SGPT/ALT 16 U/L (10-49); TOTAL PROTEIN 6.4 gm/dL (6.0-8.0)
[2023-04-17] MEDS ORDERED: LASIX40 MG PO (14:13)
[2023-04-20] MEDS ORDERED: ROPINIROLE HYDRO2 M2 PO (09:44)
[2023-04-21] MEDS ORDERED: LASIX40 MG PO (15:36)
== END 2023-04-17 14:26 | disposition home or self-care (01) ==
LOC: ED 09:53
PROVIDERS: Family Medicine
DX: R09.89 Other specified symptoms and signs involving the circulatory and respiratory systems (principal); R11.0 Nausea; H53.8 Other visual disturbances; I10 Essential (primary) hypertension; J45.909 Unspecified asthma, uncomplicated; I25.2 Old myocardial infarction; Z88.0 Allergy status to penicillin; Z98.51 Tubal ligation status; Z98.890 Other specified postprocedural states

== ENCOUNTER → 2023-05-18 | Outpatient (CLI) | payer OTHER ==
[~2023-05-18] MED LIST changes: +ACETAMINOPHEN325 M2 PO; +ATORVASTATIN CA40 M1 PO; +NOVOLOG MI100 UNIT/1 SQ; +ROPINIROLE HYDRO2 M2 PO
== END | disposition home or self-care (01) ==
LOC: D 03:11
PROVIDERS: ATTEND Internal Medicine
DX: E11.9 Type 2 diabetes mellitus without complications (principal)

== ENCOUNTER 2023-05-29 19:15 | Inpatient (IN) | payer OTHER ==
[~2023-05-29] VITALS: Ht 167.6 cm; Wt 101.2 kg
[2023-05-29 19:40] LABS: BASO % 0.3 % (0.0-1.0); EOS % 0.3 % (1.0-4.0); HEMATOCRIT 36.9 % (37.0-47.0); LYMPH # 0.5 10*3/uL (1.3-4.4); MEAN CELL VOLUME 87.9 fl (81.0-99.0); MEAN CORPUSCULAR HGB CONC 35.2 g/dl (33.0-37.0); MONO # 0.3 10*3/uL (0.1-1.0); MONO % 3.4 % (3.0-9.0); NEUT # 7.1 10*3/uL (2.3-7.9); NEUT % 89.9 % (47.0-73.0); PLATELET COUNT AUTOMATED 181 10*3/uL (130-400); RED CELL DISTRI WIDTH 12.6 % (0-14.5); WHITE BLOOD COUNT 7.9 10*3/uL (4.8-10.8)
[2023-05-29 19:50] LABS: ACT PARTIAL THROMBO TIME 26.6 SECONDS (20.0-32.1)
[2023-05-29 19:56] VITALS: BP 148/66
[2023-05-29 20:00] LABS: ALKALINE PHOSPHATASE 68 U/L (46-116); BUN 11 mg/dl (9-23); CHLORIDE 104 mmol/L (98-107); POTASSIUM 3.5 mmol/L (3.4-5.1); SGPT/ALT 19 U/L (10-49); TOTAL PROTEIN 6.4 gm/dL (6.0-8.0)
[2023-05-29 23:42] VITALS: BP 127/57
[2023-05-30 05:06] LABS: ALKALINE PHOSPHATASE 60 U/L (46-116); BUN 9 mg/dl (9-23); CHLORIDE 106 mmol/L (98-107); POTASSIUM 3.2 mmol/L (3.4-5.1); SGPT/ALT 16 U/L (10-49); TOTAL PROTEIN 6.1 gm/dL (6.0-8.0)
[2023-05-30 05:18] VITALS: BP 141/65
[2023-05-30 06:12] LABS: BASO % 0.4 % (0.0-1.0); EOS % 0.6 % (1.0-4.0); HEMATOCRIT 35.4 % (37.0-47.0); LYMPH # 0.7 10*3/uL (1.3-4.4); LYMPH % 13.7 % (27.0-41.0); MEAN CORPUSCULAR HGB 31.2 pg (27.0-31.0); MEAN CORPUSCULAR HGB CONC 34.2 g/dl (33.0-37.0); MEAN PLATELET VOLUME 9.3 fl (9.6-12.3); MONO # 0.4 10*3/uL (0.1-1.0); MONO % 7.2 % (3.0-9.0); NEUT # 4.2 10*3/uL (2.3-7.9); NEUT % 77.5 % (47.0-73.0); PLATELET COUNT AUTOMATED 158 10*3/uL (130-400); RED BLOOD COUNT 3.88 10*6/uL (4.10-5.10); RED CELL DISTRI WIDTH 12.9 % (0-14.5); WHITE BLOOD COUNT 5.4 10*3/uL (4.8-10.8)
[2023-05-30 06:13] LABS: MEAN CELL VOLUME 91.2 fl (81.0-99.0)
[2023-05-30 10:40] VITALS: BP 123/75
[2023-05-30] MEDS ORDERED: ONDANSETRON4 MG SL (11:02)
== END 2023-05-30 12:32 | disposition home or self-care (01) | DRG 392 ==
LOC: ED 19:15 → EDHOLD 22:38
PROVIDERS: Emergency Medicine; Internal Medicine; ADMIT Family Medicine; ATTEND Family Medicine
PROC: 4A02XM4 Measurement of Cardiac Total Activity, External Approach (ICD-10-PCS; principal; 2023-05-30)
PROC: 3E073KZ Introduction of Other Diagnostic Substance into Coronary Artery, Percutaneous Approach (ICD-10-PCS; 2023-05-30)
DX: A08.4 Viral intestinal infection, unspecified (principal); E44.0 Moderate protein-calorie malnutrition; I50.32 Chronic diastolic (congestive) heart failure; I25.110 Atherosclerotic heart disease of native coronary artery with unstable angina pectoris; E87.1 Hypo-osmolality and hyponatremia; I11.0 Hypertensive heart disease with heart failure; E11.65 Type 2 diabetes mellitus with hyperglycemia; J45.20 Mild intermittent asthma, uncomplicated; K29.70 Gastritis, unspecified, without bleeding; E66.09 Other obesity due to excess calories; E78.1 Pure hyperglyceridemia; E78.5 Hyperlipidemia, unspecified; F41.9 Anxiety disorder, unspecified; I25.2 Old myocardial infarction; Z95.5 Presence of coronary angioplasty implant and graft; Z98.51 Tubal ligation status; Z82.49 Family history of ischemic heart disease and other diseases of the circulatory system; Z83.3 Family history of diabetes mellitus; Z80.1 Family history of malignant neoplasm of trachea, bronchus and lung; Z88.0 Allergy status to penicillin; Z79.51 Long term (current) use of inhaled steroids; Z79.82 Long term (current) use of aspirin; Z79.4 Long term (current) use of insulin; Z79.899 Other long term (current) drug therapy; Z79.2 Long term (current) use of antibiotics; E87.6 Hypokalemia

== ENCOUNTER 2023-06-29 13:51 | Emergency (ER) | payer OTHER ==
[~2023-06-29] VITALS: Ht 162.5 cm; Wt 103.9 kg
[~2023-06-29 13:51] MED LIST changes: +JARDIANCE10 MG PO; +JARDIANCE25 MG PO; +ONDANSETRON4 MG SL
[2023-06-29 15:20] LABS: BASO % 0.7 % (0.0-1.0); EOS # 0.1 10*3/uL (0.0-0.4); HEMATOCRIT 36.7 % (37.0-47.0); LYMPH # 1.1 10*3/uL (1.3-4.4); LYMPH % 18.1 % (27.0-41.0); MEAN CELL VOLUME 92.2 fl (81.0-99.0); MEAN CORPUSCULAR HGB 31.2 pg (27.0-31.0); MEAN CORPUSCULAR HGB CONC 33.8 g/dl (33.0-37.0); MEAN PLATELET VOLUME 9.1 fl (9.6-12.3); MONO # 0.3 10*3/uL (0.1-1.0); MONO % 5.5 % (3.0-9.0); NEUT # 4.6 10*3/uL (2.3-7.9); NEUT % 74.2 % (47.0-73.0); PLATELET COUNT AUTOMATED 180 10*3/uL (130-400); RED BLOOD COUNT 3.98 10*6/uL (4.10-5.10); WHITE BLOOD COUNT 6.1 10*3/uL (4.8-10.8)
[2023-06-29 15:46] LABS: ALKALINE PHOSPHATASE 68 U/L (46-116); BUN 6 mg/dl (9-23); CHLORIDE 107 mmol/L (98-107); POTASSIUM 3.9 mmol/L (3.4-5.1); SGPT/ALT 25 U/L (10-49); TOTAL PROTEIN 6.4 gm/dL (6.0-8.0)
[2023-06-29 17:39] VITALS: BP 145/53
[2023-06-29] MEDS ORDERED: GOOD NEIGHBOR M25 M1 PO (18:58)
== END 2023-06-29 19:06 | disposition home or self-care (01) ==
LOC: ED 13:51
PROVIDERS: Internal Medicine
DX: G90.9 Disorder of the autonomic nervous system, unspecified (principal); R51.9 Headache, unspecified; R55 Syncope and collapse; Z88.0 Allergy status to penicillin; Z79.899 Other long term (current) drug therapy; Z79.82 Long term (current) use of aspirin; Z79.4 Long term (current) use of insulin; Z95.5 Presence of coronary angioplasty implant and graft; Z98.51 Tubal ligation status

== ENCOUNTER → 2023-07-07 | Outpatient (CLI) | payer OTHER ==
[~2023-07-07] MED LIST changes: +GOOD NEIGHBOR M25 M1 PO
== END | disposition home or self-care (01) ==
LOC: CARD 01:34
PROVIDERS: ATTEND Internal Medicine
DX: R00.2 Palpitations (principal)

== ENCOUNTER 2023-07-24 07:08 | Emergency (ER) | payer OTHER ==
[~2023-07-24] VITALS: Ht 162.5 cm; Wt 103.9 kg
[2023-07-24 07:19] VITALS: BP 143/71
[2023-07-24] MEDS ORDERED: MELOXICAM15 MG PO (08:20)
[2023-07-24] MEDS ORDERED: ZANAFLEX4 MG PO (08:20)
== END 2023-07-24 08:16 | disposition home or self-care (01) ==
LOC: ED 07:08
DX: M54.50 Low back pain, unspecified (principal); E11.9 Type 2 diabetes mellitus without complications; I10 Essential (primary) hypertension; Z88.0 Allergy status to penicillin; Z79.899 Other long term (current) drug therapy; Z79.82 Long term (current) use of aspirin; Z79.4 Long term (current) use of insulin; Z95.5 Presence of coronary angioplasty implant and graft; Z98.51 Tubal ligation status; Z89.021 Acquired absence of right finger(s); X50.1XXA Overexertion from prolonged static or awkward postures, initial encounter; Y93.89 Activity, other specified; Y92.89 Other specified places as the place of occurrence of the external cause; Y99.8 Other external cause status

== ENCOUNTER → 2024-12-02 | Outpatient (CLI) | payer OTHER ==
[~2024-12-02] MED LIST changes: +DECADRON4 MG PO; +LOSARTAN POTASS25 M1 PO; +MELOXICAM15 MG PO; +NEURONTIN300 MG PO; +ROPINIROLE HYDRO4 MG PO; +ZANAFLEX4 MG PO
== END | disposition home or self-care (01) ==
LOC: MAMMO 02:02
PROVIDERS: ATTEND Internal Medicine
DX: Z12.31 Encounter for screening mammogram for malignant neoplasm of breast (principal); R92.30 Dense breasts, unspecified

== ENCOUNTER → 2025-01-13 | Outpatient (CLI) | payer OTHER ==
[2025-01-13 17:25] LABS: BASO # 0.1 10*3/uL (0.0-0.1); BASO % 1.2 % (0.0-1.0); EOS # 0.1 10*3/uL (0.0-0.4); EOS % 1.2 % (1.0-4.0); HEMATOCRIT 44.9 % (37.0-47.0); MEAN CELL VOLUME 89.8 fl (81.0-99.0); MEAN CORPUSCULAR HGB 30.4 pg (27.0-31.0); MEAN CORPUSCULAR HGB CONC 33.9 g/dl (33.0-37.0); MEAN PLATELET VOLUME 9.1 fl (9.6-12.3); MONO # 0.4 10*3/uL (0.1-1.0); MONO % 7.8 % (3.0-9.0); NEUT # 2.8 10*3/uL (2.3-7.9); NEUT % 55.3 % (47.0-73.0); PLATELET COUNT AUTOMATED 240 10*3/uL (130-400); RED CELL DISTRI WIDTH 12.3 % (0-14.5)
[2025-01-13 17:51] LABS: ALKALINE PHOSPHATASE 97 U/L (46-116); BUN 16 mg/dl (9-23); CHLORIDE 102 mmol/L (98-107); CHOLESTEROL 191 mg/dL (<200); POTASSIUM 3.8 mmol/L (3.4-5.1); SGPT/ALT 33 U/L (5-49); TOTAL PROTEIN 7.5 gm/dL (6.0-8.0)
[2025-01-13 17:54] LABS: VITAMIN D, 25-HYDROXY 29.1 ng/mL (30-100)
== END | disposition home or self-care (01) ==
LOC: LAB 17:04
PROVIDERS: ATTEND Internal Medicine
DX: E11.9 Type 2 diabetes mellitus without complications (principal)

== ENCOUNTER 2025-02-06 12:09 | Emergency (ER) | payer OTHER ==
[~2025-02-06] VITALS: Ht 162.5 cm; Wt 102.1 kg
[2025-02-06 12:13] VITALS: BP 136/83
[2025-02-06] MEDS ORDERED: Ondansetron Hydrochloride 4 MG/2 ML VIAL IV ONE (12:30)
[2025-02-06] MEDS ORDERED: MORPHINE Sulfate 2 MG/ML SYR IV ONE (12:30)
[2025-02-06 12:52] LABS: BASO # 0.1 10*3/uL (0.0-0.1); BASO % 0.4 % (0.0-1.0); EOS % 0.3 % (1.0-4.0); HEMATOCRIT 42.9 % (37.0-47.0); MEAN CELL VOLUME 90.1 fl (81.0-99.0); MEAN CORPUSCULAR HGB 30.5 pg (27.0-31.0); MEAN CORPUSCULAR HGB CONC 33.8 g/dl (33.0-37.0); MEAN PLATELET VOLUME 9.3 fl (9.6-12.3); MONO # 0.9 10*3/uL (0.1-1.0); MONO % 7.4 % (3.0-9.0); NEUT # 9.2 10*3/uL (2.3-7.9); NEUT % 79.8 % (47.0-73.0); PLATELET COUNT AUTOMATED 247 10*3/uL (130-400); RED BLOOD COUNT 4.76 10*6/uL (4.10-5.10); RED CELL DISTRI WIDTH 12.1 % (0-14.5); WHITE BLOOD COUNT 11.5 10*3/uL (4.8-10.8)
[2025-02-06 13:17] LABS: BUN 11 mg/dl (9-23); CHLORIDE 100 mmol/L (98-107); POTASSIUM 3.5 mmol/L (3.4-5.1)
[2025-02-06] MEDS ORDERED: LEVOFLOXACIN750 M2 PO (13:26)
== END 2025-02-06 13:26 | disposition home or self-care (01) ==
LOC: ED 12:09
PROVIDERS: Emergency Medicine
DX: R07.89 Other chest pain (principal); J02.0 Streptococcal pharyngitis; R60.0 Localized edema; J45.909 Unspecified asthma, uncomplicated; E11.9 Type 2 diabetes mellitus without complications; I25.10 Atherosclerotic heart disease of native coronary artery without angina pectoris; Z88.0 Allergy status to penicillin; Z79.899 Other long term (current) drug therapy; Z79.82 Long term (current) use of aspirin; Z79.4 Long term (current) use of insulin; Z95.5 Presence of coronary angioplasty implant and graft

== ENCOUNTER 2025-02-07 23:30 | Observation (INO) | payer OTHER ==
[~2025-02-07] VITALS: Ht 162.5 cm; Wt 101.2 kg
[~2025-02-07 23:30] MED LIST changes: +LEVOFLOXACIN750 M2 PO
[2025-02-07 23:32] VITALS: BP 143/44
[2025-02-07 23:47] VITALS: BP 143/64
[2025-02-08 00:38] LABS: BASO % 0.5 % (0.0-1.0); EOS # 0.1 10*3/uL (0.0-0.4); EOS % 0.8 % (1.0-4.0); HEMATOCRIT 41.8 % (37.0-47.0); MEAN CELL VOLUME 91.1 fl (81.0-99.0); MEAN CORPUSCULAR HGB 30.1 pg (27.0-31.0); MEAN PLATELET VOLUME 9.1 fl (9.6-12.3); MONO # 0.5 10*3/uL (0.1-1.0); NEUT % 78.7 % (47.0-73.0); PLATELET COUNT AUTOMATED 220 10*3/uL (130-400); RED BLOOD COUNT 4.59 10*6/uL (4.10-5.10); RED CELL DISTRI WIDTH 12.2 % (0-14.5); WHITE BLOOD COUNT 7.6 10*3/uL (4.8-10.8)
[2025-02-08 00:57] LABS: BUN 19 mg/dl (9-23); CHLORIDE 101 mmol/L (98-107)
[2025-02-08] MEDS ORDERED: ACETAMINOPHEN 325 MG TAB PO ONE (02:00)
[2025-02-08] MEDS ORDERED: Promethazine Hydrochloride 25 MG/ML VIAL IM ONE (02:50)
[2025-02-08 04:00] VITALS: BP 164/72
[2025-02-08] MEDS ORDERED: MORPHINE Sulfate 2 MG/ML SYR IV PRN (05:05)
[2025-02-08] MEDS ORDERED: Ondansetron Hydrochloride 4 MG/2 ML VIAL IV PRN (05:05)
[2025-02-08] MEDS ORDERED: Acetaminophen/Hydrocodone 5 MG/325 MG TABLET PO PRN (05:05)
[2025-02-08 07:44] VITALS: BP 141/68
[2025-02-08] MEDS ORDERED: DEXTROSE 10 % IN WATER 250 ML IV PRN (08:50)
[2025-02-08 10:00] VITALS: BP 152/71
[2025-02-08] MEDS ORDERED: Enoxaparin Sodium 40 MG/0.4 ML SYR SC SCH (10:00)
[2025-02-08] MEDS ORDERED: cefTRIAXone Sodium 1 GM in SYRINGE INFUSION 10 ML IV SCH (10:00)
[2025-02-08] MEDS ORDERED: CEPHALEXIN 500 MG CAP PO SCH (10:00)
[2025-02-08] MEDS ORDERED: OZEMPIC1 MG/0.71 SQ (11:05)
[2025-02-08] MEDS ORDERED: INSULIN LISPRO 1 UNIT/0.01 ML SQ SCH (11:30)
[2025-02-08 12:00] VITALS: BP 159/63
[2025-02-08] MEDS ORDERED: hydrOXYzine pamoate 25 MG CAP PO PRN (12:40)
[2025-02-08] MEDS ORDERED: Losartan Potassium 25 MG TAB PO SCH (12:40)
[2025-02-08] MEDS ORDERED: BUDESONIDE 0.5 MG AMP NEB SCH (12:55)
[2025-02-08 16:00] VITALS: BP 140/52
[2025-02-08] MEDS ORDERED: ATORVASTATIN CALCIUM 40 MG TABLET PO SCH (18:00)
[2025-02-08 20:00] VITALS: BP 143/66
[2025-02-08] MEDS ORDERED: FLUoxetine Hydrochloride 20 MG CAP PO SCH (22:00)
[2025-02-08] MEDS ORDERED: GABAPENTIN 300 MG CAP PO SCH (22:00)
[2025-02-08] MEDS ORDERED: rOPINIRole Hydrochloride 1 MG TAB PO SCH (22:00)
[2025-02-08] MEDS ORDERED: Metoprolol Tartrate 25 MG TAB PO SCH (22:00)
[2025-02-08] MEDS ORDERED: Metoprolol Tartrate 50 MG TAB PO SCH (22:00)
[2025-02-09] VITALS: BP 138/68
[2025-02-09 05:43] LABS: BUN 17 mg/dl (9-23); CHLORIDE 105 mmol/L (98-107); POTASSIUM 3.9 mmol/L (3.4-5.1)
[2025-02-09 06:44] LABS: BASO # 0.1 10*3/uL (0.0-0.1); EOS # 0.1 10*3/uL (0.0-0.4); EOS % 1.2 % (1.0-4.0); HEMATOCRIT 42.1 % (37.0-47.0); MEAN CELL VOLUME 90.9 fl (81.0-99.0); MEAN PLATELET VOLUME 9.1 fl (9.6-12.3); MONO # 0.4 10*3/uL (0.1-1.0); MONO % 8.3 % (3.0-9.0); NEUT # 2.8 10*3/uL (2.3-7.9); NEUT % 57.2 % (47.0-73.0); PLATELET COUNT AUTOMATED 263 10*3/uL (130-400); RED BLOOD COUNT 4.63 10*6/uL (4.10-5.10); RED CELL DISTRI WIDTH 11.9 % (0-14.5)
[2025-02-09 08:00] VITALS: BP 160/64
[2025-02-09] MEDS ORDERED: ASPIRIN ENTERIC COATED 81 MG TAB PO SCH (10:00)
[2025-02-09] MEDS ORDERED: FLUTICASONE FUROATE 100 MCG INH SCH (10:00)
[2025-02-09] MEDS ORDERED: EMPAGLIFLOZIN 25 MG TABLET PO SCH (10:00)
[2025-02-09] MEDS ORDERED: FUROSEMIDE 40 MG TAB PO SCH (10:00)
[2025-02-09 12:00] VITALS: BP 145/61
[2025-02-09] MEDS ORDERED: CEPHALEXIN500 M1 PO (12:09)
[2025-02-09] MEDS ORDERED: LOPRESSOR25 MG PO (12:09)
== END 2025-02-09 14:16 | disposition home or self-care (01) ==
LOC: ED 23:30 → EDHOLD 02-08 04:54 → 4E 02-08 07:42
PROVIDERS: Emergency Medicine; Internal Medicine; ADMIT Student in an Organized Health Care Education/Training Program; ATTEND Student in an Organized Health Care Education/Training Program
DX: R55 Syncope and collapse (principal); S01.21XA Laceration without foreign body of nose, initial encounter; R07.89 Other chest pain; R53.83 Other fatigue; G90.9 Disorder of the autonomic nervous system, unspecified; E11.65 Type 2 diabetes mellitus with hyperglycemia; J02.0 Streptococcal pharyngitis; I11.0 Hypertensive heart disease with heart failure; I50.32 Chronic diastolic (congestive) heart failure; G25.81 Restless legs syndrome; I25.10 Atherosclerotic heart disease of native coronary artery without angina pectoris; F41.9 Anxiety disorder, unspecified; J45.909 Unspecified asthma, uncomplicated; I25.2 Old myocardial infarction; E78.5 Hyperlipidemia, unspecified; Z88.0 Allergy status to penicillin; Z79.82 Long term (current) use of aspirin; Z79.899 Other long term (current) drug therapy; Z79.4 Long term (current) use of insulin; X58.XXXA Exposure to other specified factors, initial encounter; Y93.89 Activity, other specified; Y92.89 Other specified places as the place of occurrence of the external cause; Y99.8 Other external cause status

== ENCOUNTER 2025-02-13 09:54 | Emergency (ER) | payer OTHER ==
[~2025-02-13] VITALS: Ht 162.5 cm; Wt 101.2 kg
[~2025-02-13 09:54] MED LIST changes: +CEPHALEXIN500 M1 PO; +LOPRESSOR25 MG PO; +OZEMPIC1 MG/0.71 SQ
[2025-02-13 10:02] VITALS: BP 174/77
[2025-02-13 10:55] LABS: BASO # 0.1 10*3/uL (0.0-0.1); BASO % 0.8 % (0.0-1.0); EOS # 0.1 10*3/uL (0.0-0.4); EOS % 0.7 % (1.0-4.0); HEMATOCRIT 41.9 % (37.0-47.0); MEAN CELL VOLUME 89.9 fl (81.0-99.0); MEAN CORPUSCULAR HGB 30.5 pg (27.0-31.0); MEAN CORPUSCULAR HGB CONC 33.9 g/dl (33.0-37.0); MEAN PLATELET VOLUME 8.9 fl (9.6-12.3); MONO # 0.4 10*3/uL (0.1-1.0); NEUT # 5.4 10*3/uL (2.3-7.9); NEUT % 74.2 % (47.0-73.0); PLATELET COUNT AUTOMATED 244 10*3/uL (130-400); RED BLOOD COUNT 4.66 10*6/uL (4.10-5.10); RED CELL DISTRI WIDTH 11.9 % (0-14.5); WHITE BLOOD COUNT 7.2 10*3/uL (4.8-10.8)
[2025-02-13 11:13] LABS: BUN 11 mg/dl (9-23); CHLORIDE 103 mmol/L (98-107); POTASSIUM 4.1 mmol/L (3.4-5.1)
[2025-02-13] MEDS ORDERED: LOSARTAN POTASS50 M1 PO (13:34)
== END 2025-02-13 14:04 | disposition home or self-care (01) ==
LOC: ED 09:54
DX: R55 Syncope and collapse (principal); R53.1 Weakness; R11.0 Nausea; R61 Generalized hyperhidrosis; Z88.0 Allergy status to penicillin; Z79.899 Other long term (current) drug therapy; Z79.82 Long term (current) use of aspirin; Z95.5 Presence of coronary angioplasty implant and graft